=== PATIENT | female | born 1955 | race Caucasian/White ===

== ENCOUNTER 2017-06-23 10:47 | Inpatient (IN) | payer OTHER ==
[~2017-06-23] VITALS: Ht 162.6 cm; Wt 50.4 kg
[2017-06-23 11:30] LABS: BASOPHIL (%) 0.2 % (0-1); EOSINOPHIL (%) 0.2 % (0-5); HEMATOCRIT 49.6 % (36.0-46.0); IMMATURE GRANULOCYTE (%) 0.5 % (0.0-0.7); LYMPHOCYTE (%) 10.5 % (15-42); LYMPHOCYTE COUNT 1.3 K/uL (1.0-2.8); MCH 27.4 PG (29.0-34.0); MCHC 32.3 G/DL (30.0-36.0); MCV 85.1 FL (83-99); MONOCYTE (%) 7.8 % (3-12); MONOCYTE COUNT 0.9 K/uL (0-0.8); NEUTROPHIL (%) 80.8 % (45-76); NEUTROPHIL COUNT 9.7 K/uL (1.8-6.4); NRBC (%) 2.4 /100 WBC (0-0); PLATELET COUNT 211 K/uL (156-360); RBC DIS.WIDTH-CV 17.4 % (11.8-14.6); RBC DIS.WIDTH-SD 50.3 % (39-53); RED BLOOD COUNT 5.83 M/uL (3.80-5.20)
[2017-06-23 11:35] LABS: INTER. NORMALIZED RATIO 1.6
[2017-06-23 11:38] LABS: PTT 27.4 SEC (25-37)
[2017-06-23 11:41] LABS: CHLORIDE 91 mEq/L (99-109); POTASSIUM 5.9 mEq/L (3.7-5.4); SODIUM 134 mEq/L (136-147)
[2017-06-23 11:42] LABS: GLUCOSE 94 mg/dL (70-99)
[2017-06-23 11:46] LABS: CREATININE 0.9 mg/dL (0.6-1.3); GFR ESTIMATE (CALCULATED) > 59 mL/min/
[2017-06-23 11:47] LABS: UREA NITROGEN (BUN) 78 mg/dL (9-23)
[2017-06-23 11:50] LABS: TROP-I INTERPRETATION NEGATIVE; TROPONIN-I 0.04 ng/mL (0.0-0.30)
[2017-06-23] MEDS ORDERED: CALCIUM 500-VI1 EAC1 PO (14:22)
[2017-06-23 17:18] LABS: BASE EXCESS 3.7 mEq/L (-3 to +3); BICARBONATE 35.9 mEq/L (22-26); CARBOXY HGB 6.2 % (0-5); COMMENTS - BLOOD GASES A+C+; DEVICE NRBM; FI02 100 %; METHEMOGLOBIN 1.3 % (0-1.5); O2 FLOW 15 L/MIN; PCO2 94 mm Hg (35-45); PO2 170 mm Hg (80-100); SITE RR; TOTAL RESP RATE 22 resp/min
[2017-06-23 17:19] VITALS: BP 129/56
[2017-06-23 17:21] LABS: pH 7.19 (7.35-7.45)
[2017-06-23 18:40] LABS: TROP-I INTERPRETATION NEGATIVE; TROPONIN-I 0.04 ng/mL (0.0-0.30)
[2017-06-23 19:00] VITALS: BP 134/60
[2017-06-23 19:20] LABS: CHLORIDE 95 MEQ/L (99-109); CREATININE 0.7 MG/DL (0.6-1.3); GFR ESTIMATE (CALCULATED) > 59 mL/min/; GLUCOSE 107 mg/dL (70-99); POTASSIUM 4.8 MEQ/L (3.7-5.4); SODIUM 137 MEQ/L (136-147); UREA NITROGEN (BUN) 61 mg/dL (9-23)
[2017-06-23 20:00] VITALS: BP 143/62
[2017-06-23 20:28] LABS: BASE EXCESS 3.8 mEq/L (-3 to +3); BICARBONATE 35.2 mEq/L (22-26); COMMENTS - BLOOD GASES A+C+; DEVICE MASK VENT; FI02 80 %; METHEMOGLOBIN 1.6 % (0-1.5); MODE SPONT; PCO2 86 mm Hg (35-45); PO2 158 mm Hg (80-100); SITE LRAD; pH 7.22 (7.35-7.45)
[2017-06-23 20:29] LABS: PEEP 5 CM/H20; PRES. SUPPORT 13 CM/H2O; TOTAL RESP RATE 21 resp/min
[2017-06-23 21:00] VITALS: BP 128/59
[2017-06-23 22:00] VITALS: BP 128/59
[2017-06-23 23:00] VITALS: BP 116/55
[2017-06-24] VITALS (22 sets, daily range): BP systolic 98–138; BP diastolic 35–70
[2017-06-24 00:50] LABS: TROP-I INTERPRETATION NEGATIVE; TROPONIN-I 0.03 ng/mL (0.0-0.30)
[2017-06-24 07:06] LABS: BASOPHIL (%) 0.2 % (0-1); EOSINOPHIL (%) 0.2 % (0-5); HEMATOCRIT 47.2 % (36.0-46.0); HEMOGLOBIN 14.8 G/DL (11.9-15.5); IMMATURE GRANULOCYTE (%) 0.6 % (0.0-0.7); LYMPHOCYTE (%) 1.1 % (15-42); LYMPHOCYTE COUNT 0.1 K/uL (1.0-2.8); MCH 27.2 PG (29.0-34.0); MCHC 31.4 G/DL (30.0-36.0); MCV 86.6 FL (83-99); MONOCYTE (%) 4.1 % (3-12); MONOCYTE COUNT 0.5 K/uL (0-0.8); NEUTROPHIL (%) 93.8 % (45-76); NEUTROPHIL COUNT 11.8 K/uL (1.8-6.4); NRBC (%) 1.5 /100 WBC (0-0); PLATELET COUNT 175 K/uL (156-360); RBC DIS.WIDTH-CV 17.2 % (11.8-14.6); RBC DIS.WIDTH-SD 51.9 % (39-53); RED BLOOD COUNT 5.45 M/uL (3.80-5.20); WHITE BLOOD COUNT 12.6 K/uL (4.1-10.2)
[2017-06-24 07:32] LABS: ALBUMIN 2.9 G/DL (3.2-4.8); ALKALINE PHOSPHATASE 58 IU/L (3-129); ALT (GPT) 102 IU/L (3-49); AST (GOT) 81 IU/L (2-34); CHLORIDE 95 MEQ/L (99-109); CREATININE 0.6 MG/DL (0.6-1.3); GFR ESTIMATE (CALCULATED) > 59 mL/min/; GLUCOSE 112 mg/dL (70-99); MAGNESIUM 1.8 mg/dl (1.3-2.7); PHOSPHORUS 3.5 mg/dL (2.5-4.9); POTASSIUM 4.4 MEQ/L (3.7-5.4); SODIUM 142 MEQ/L (136-147); TOTAL BILIRUBIN 1.4 MG/DL (0.0-1.0); TOTAL PROTEIN 5.9 G/DL (6.4-8.3); UREA NITROGEN (BUN) 49 mg/dL (9-23)
[2017-06-24 11:20] LABS: BASE EXCESS 15.4 mEq/L (-3 to +3); CARBOXY HGB 2.7 % (0-5)
[2017-06-24 11:21] LABS: COMMENTS - BLOOD GASES A+C+; DEVICE HFNC; O2 FLOW 9 L/MIN; PCO2 76 mm Hg (35-45); PO2 58 mm Hg (80-100); SITE RR; TOTAL RESP RATE 25 resp/min; pH 7.38 (7.35-7.45)
[2017-06-25] VITALS (10 sets, daily range): BP systolic 91–136; BP diastolic 53–72
[2017-06-25 05:50] LABS: BASOPHIL (%) 0.1 % (0-1); EOSINOPHIL (%) 0 % (0-5); HEMATOCRIT 47.7 % (36.0-46.0); HEMOGLOBIN 14.7 G/DL (11.9-15.5); IMMATURE GRANULOCYTE (%) 0.6 % (0.0-0.7); LYMPHOCYTE (%) 0.6 % (15-42); LYMPHOCYTE COUNT 0.1 K/uL (1.0-2.8); MCH 26.9 PG (29.0-34.0); MCHC 30.8 G/DL (30.0-36.0); MCV 87.2 FL (83-99); MONOCYTE (%) 4.3 % (3-12); MONOCYTE COUNT 0.5 K/uL (0-0.8); NEUTROPHIL (%) 94.4 % (45-76); NEUTROPHIL COUNT 11.8 K/uL (1.8-6.4); PLATELET COUNT 178 K/uL (156-360); RBC DIS.WIDTH-CV 17.2 % (11.8-14.6); RED BLOOD COUNT 5.47 M/uL (3.80-5.20); WHITE BLOOD COUNT 12.5 K/uL (4.1-10.2)
[2017-06-25 06:08] LABS: CHLORIDE 93 MEQ/L (99-109); CREATININE 0.6 MG/DL (0.6-1.3); GFR ESTIMATE (CALCULATED) > 59 mL/min/; GLUCOSE 73 mg/dL (70-99); MAGNESIUM 1.8 mg/dl (1.3-2.7); PHOSPHORUS 2.5 mg/dL (2.5-4.9); POTASSIUM 4.2 MEQ/L (3.7-5.4); SODIUM 139 MEQ/L (136-147); UREA NITROGEN (BUN) 36 mg/dL (9-23)
[2017-06-25 13:31] LABS: INTER. NORMALIZED RATIO 1.3
[2017-06-25 13:34] LABS: PTT 51.2 SEC (25-37)
[2017-06-26] VITALS (15 sets, daily range): BP systolic 97–126; BP diastolic 53–68
[2017-06-26 05:37] LABS: INTER. NORMALIZED RATIO 1.2
[2017-06-26 06:13] LABS: PTT 68.6 SEC (25-37)
[2017-06-26 08:30] LABS: BASOPHIL (%) 0.1 % (0-1); EOSINOPHIL (%) 0 % (0-5); HEMATOCRIT 48.7 % (36.0-46.0); HEMOGLOBIN 14.9 G/DL (11.9-15.5); IMMATURE GRANULOCYTE (%) 0.5 % (0.0-0.7); LYMPHOCYTE (%) 0.5 % (15-42); LYMPHOCYTE COUNT 0.1 K/uL (1.0-2.8); MCH 26.8 PG (29.0-34.0); MCHC 30.6 G/DL (30.0-36.0); MCV 87.4 FL (83-99); MONOCYTE (%) 3.2 % (3-12); MONOCYTE COUNT 0.4 K/uL (0-0.8); NEUTROPHIL (%) 95.7 % (45-76); NEUTROPHIL COUNT 12.3 K/uL (1.8-6.4); NRBC (%) 0.8 /100 WBC (0-0); PLATELET COUNT 159 K/uL (156-360); RBC DIS.WIDTH-CV 17.5 % (11.8-14.6); RBC DIS.WIDTH-SD 52.6 % (39-53); RED BLOOD COUNT 5.57 M/uL (3.80-5.20); WHITE BLOOD COUNT 12.8 K/uL (4.1-10.2)
[2017-06-26 09:06] LABS: CHLORIDE 94 MEQ/L (99-109); CREATININE 0.5 MG/DL (0.6-1.3); GFR ESTIMATE (CALCULATED) > 59 mL/min/; SODIUM 143 MEQ/L (136-147); UREA NITROGEN (BUN) 27 mg/dL (9-23)
[2017-06-26 09:07] LABS: CARBON DIOXIDE (BICARBONATE) > 40.0 MEQ/L (20-31); GLUCOSE 116 mg/dL (70-99)
[2017-06-26 11:36] LABS: INTER. NORMALIZED RATIO 1.2
[2017-06-26 11:39] LABS: PTT 83.4 SEC (25-37)
[2017-06-26 19:21] LABS: ALBUMIN 2.8 G/DL (3.2-4.8); ALKALINE PHOSPHATASE 49 IU/L (3-129); ALT (GPT) 59 IU/L (3-49); CHLORIDE 93 MEQ/L (99-109); CREATININE 0.4 MG/DL (0.6-1.3); GFR ESTIMATE (CALCULATED) > 59 mL/min/; SODIUM 140 MEQ/L (136-147); TOTAL PROTEIN 5.8 G/DL (6.4-8.3); UREA NITROGEN (BUN) 22 mg/dL (9-23)
[2017-06-26 19:22] LABS: AST (GOT) 32 IU/L (2-34); GLUCOSE 177 mg/dL (70-99); POTASSIUM 3.1 MEQ/L (3.7-5.4); TOTAL BILIRUBIN 0.8 MG/DL (0.0-1.0)
[2017-06-27] VITALS (10 sets, daily range): BP systolic 102–136; BP diastolic 58–74
[2017-06-27 06:24] LABS: BASOPHIL (%) 0.1 % (0-1); EOSINOPHIL (%) 0 % (0-5); HEMATOCRIT 47.6 % (36.0-46.0); HEMOGLOBIN 14.7 G/DL (11.9-15.5); IMMATURE GRANULOCYTE (%) 0.7 % (0.0-0.7); LYMPHOCYTE (%) 1.1 % (15-42); LYMPHOCYTE COUNT 0.2 K/uL (1.0-2.8); MCH 26.5 PG (29.0-34.0); MCHC 30.9 G/DL (30.0-36.0); MCV 85.9 FL (83-99); MONOCYTE (%) 3.2 % (3-12); MONOCYTE COUNT 0.4 K/uL (0-0.8); NEUTROPHIL (%) 94.9 % (45-76); NRBC (%) 0.4 /100 WBC (0-0); PLATELET COUNT 146 K/uL (156-360); RBC DIS.WIDTH-CV 16.5 % (11.8-14.6); RBC DIS.WIDTH-SD 50.7 % (39-53); RED BLOOD COUNT 5.54 M/uL (3.80-5.20); WHITE BLOOD COUNT 13.7 K/uL (4.1-10.2)
[2017-06-27 06:56] LABS: CHLORIDE 96 MEQ/L (99-109); CREATININE 0.4 MG/DL (0.6-1.3); GFR ESTIMATE (CALCULATED) > 59 mL/min/; GLUCOSE 157 mg/dL (70-99); POTASSIUM 3.5 MEQ/L (3.7-5.4); SODIUM 142 MEQ/L (136-147); UREA NITROGEN (BUN) 17 mg/dL (9-23)
[2017-06-27 07:47] LABS: INTER. NORMALIZED RATIO 1.3
[2017-06-27 07:49] LABS: PTT 87.3 SEC (25-37)
[2017-06-27 09:57] LABS: HEMOGLOBIN A1c (GLYCOHEMOGLOB) 6.7 % (Below 5.7)
[2017-06-27 12:41] LABS: INTER. NORMALIZED RATIO 1.5
[2017-06-28] VITALS: BP 136/72
[2017-06-28 04:00] VITALS: BP 141/79
[2017-06-28 06:17] LABS: BASOPHIL (%) 0.1 % (0-1); EOSINOPHIL (%) 0 % (0-5); HEMATOCRIT 47.3 % (36.0-46.0); HEMOGLOBIN 14.7 G/DL (11.9-15.5); IMMATURE GRANULOCYTE (%) 0.5 % (0.0-0.7); LYMPHOCYTE (%) 2.3 % (15-42); LYMPHOCYTE COUNT 0.3 K/uL (1.0-2.8); MCH 26.3 PG (29.0-34.0); MCHC 31.1 G/DL (30.0-36.0); MCV 84.8 FL (83-99); MONOCYTE (%) 4.9 % (3-12); MONOCYTE COUNT 0.6 K/uL (0-0.8); NEUTROPHIL (%) 92.2 % (45-76); NEUTROPHIL COUNT 11.8 K/uL (1.8-6.4); PLATELET COUNT 147 K/uL (156-360); RBC DIS.WIDTH-CV 16.7 % (11.8-14.6); RBC DIS.WIDTH-SD 50.3 % (39-53); RED BLOOD COUNT 5.58 M/uL (3.80-5.20); WHITE BLOOD COUNT 12.7 K/uL (4.1-10.2)
[2017-06-28 06:25] LABS: INTER. NORMALIZED RATIO 1.4
[2017-06-28 06:28] LABS: PTT 80.7 SEC (25-37)
[2017-06-28 06:40] LABS: CHLORIDE 100 MEQ/L (99-109); CREATININE 0.4 MG/DL (0.6-1.3); GFR ESTIMATE (CALCULATED) > 59 mL/min/; GLUCOSE 146 mg/dL (70-99); POTASSIUM 4.1 MEQ/L (3.7-5.4); SODIUM 140 MEQ/L (136-147); UREA NITROGEN (BUN) 18 mg/dL (9-23)
[2017-06-28 08:00] VITALS: BP 102/63
[2017-06-28 12:00] VITALS: BP 136/72
[2017-06-28 13:01] LABS: INTER. NORMALIZED RATIO 1.6
[2017-06-28 13:03] LABS: PTT 71.9 SEC (25-37)
[2017-06-28 13:36] VITALS: BP 127/65
[2017-06-28 19:35] VITALS: BP 137/66
[2017-06-29 00:04] VITALS: BP 129/74
[2017-06-29 03:16] VITALS: BP 128/70
[2017-06-29 06:10] LABS: BASOPHIL (%) 0.1 % (0-1); EOSINOPHIL (%) 0.5 % (0-5); EOSINOPHIL COUNT 0.1 K/uL (0-0.3); HEMATOCRIT 46.2 % (36.0-46.0); HEMOGLOBIN 14.8 G/DL (11.9-15.5); IMMATURE GRANULOCYTE (%) 0.5 % (0.0-0.7); LYMPHOCYTE (%) 12.4 % (15-42); LYMPHOCYTE COUNT 1.2 K/uL (1.0-2.8); MCH 26.8 PG (29.0-34.0); MCV 83.7 FL (83-99); MONOCYTE (%) 6.9 % (3-12); MONOCYTE COUNT 0.7 K/uL (0-0.8); NEUTROPHIL (%) 79.6 % (45-76); PLATELET COUNT 149 K/uL (156-360); RBC DIS.WIDTH-CV 17.3 % (11.8-14.6); RBC DIS.WIDTH-SD 50.4 % (39-53); RED BLOOD COUNT 5.52 M/uL (3.80-5.20)
[2017-06-29 06:23] LABS: INTER. NORMALIZED RATIO 1.6
[2017-06-29 06:26] LABS: PTT 79.2 SEC (25-37)
[2017-06-29 06:34] LABS: CHLORIDE 102 MEQ/L (99-109); CREATININE 0.3 MG/DL (0.6-1.3); GFR ESTIMATE (CALCULATED) > 59 mL/min/; POTASSIUM 3.9 MEQ/L (3.7-5.4); SODIUM 139 MEQ/L (136-147); UREA NITROGEN (BUN) 16 mg/dL (9-23)
[2017-06-29 06:35] LABS: GLUCOSE 81 mg/dL (70-99)
[2017-06-29 08:05] VITALS: BP 144/72
[2017-06-29 11:58] VITALS: BP 131/62
[2017-06-29 19:30] VITALS: BP 133/70
[2017-06-29 23:57] VITALS: BP 129/65
[2017-06-30 03:27] VITALS: BP 147/80
[2017-06-30 06:35] LABS: BASOPHIL (%) 0.1 % (0-1); EOSINOPHIL (%) 0.5 % (0-5); EOSINOPHIL COUNT 0.1 K/uL (0-0.3); HEMATOCRIT 46.8 % (36.0-46.0); HEMOGLOBIN 14.7 G/DL (11.9-15.5); IMMATURE GRANULOCYTE (%) 0.5 % (0.0-0.7); LYMPHOCYTE (%) 10.9 % (15-42); LYMPHOCYTE COUNT 1.1 K/uL (1.0-2.8); MCH 25.8 PG (29.0-34.0); MCHC 31.4 G/DL (30.0-36.0); MCV 82.1 FL (83-99); MONOCYTE (%) 8.2 % (3-12); MONOCYTE COUNT 0.8 K/uL (0-0.8); NEUTROPHIL (%) 79.8 % (45-76); NEUTROPHIL COUNT 7.7 K/uL (1.8-6.4); PLATELET COUNT 149 K/uL (156-360); RBC DIS.WIDTH-CV 16.5 % (11.8-14.6); RBC DIS.WIDTH-SD 48.1 % (39-53); WHITE BLOOD COUNT 9.6 K/uL (4.1-10.2)
[2017-06-30 06:50] LABS: INTER. NORMALIZED RATIO 2.6
[2017-06-30 06:52] LABS: PTT 65.1 SEC (25-37)
[2017-06-30 06:59] LABS: CHLORIDE 101 MEQ/L (99-109); CREATININE 0.4 MG/DL (0.6-1.3); GFR ESTIMATE (CALCULATED) > 59 mL/min/; GLUCOSE 79 mg/dL (70-99); POTASSIUM 3.8 MEQ/L (3.7-5.4); SODIUM 140 MEQ/L (136-147); UREA NITROGEN (BUN) 14 mg/dL (9-23)
[2017-06-30 07:20] VITALS: BP 142/75
[2017-06-30 11:35] VITALS: BP 103/60
[2017-06-30 15:03] VITALS: BP 112/58
[2017-06-30 19:40] VITALS: BP 115/65
[2017-07-01] VITALS (7 sets, daily range): BP systolic 110–132; BP diastolic 58–67
[2017-07-01 07:07] LABS: INTER. NORMALIZED RATIO 2.3
[2017-07-01 07:10] LABS: PTT 74.3 SEC (25-37)
[2017-07-01 07:19] LABS: BASOPHIL (%) 0.1 % (0-1); EOSINOPHIL (%) 0.4 % (0-5); HEMATOCRIT 44.5 % (36.0-46.0); HEMOGLOBIN 14.4 G/DL (11.9-15.5); IMMATURE GRANULOCYTE (%) 0.6 % (0.0-0.7); LYMPHOCYTE (%) 11.5 % (15-42); MCH 26.4 PG (29.0-34.0); MCHC 32.4 G/DL (30.0-36.0); MCV 81.7 FL (83-99); MONOCYTE COUNT 0.8 K/uL (0-0.8); NEUTROPHIL (%) 78.4 % (45-76); PLATELET COUNT 140 K/uL (156-360); RBC DIS.WIDTH-CV 16.8 % (11.8-14.6); RBC DIS.WIDTH-SD 48.6 % (39-53); RED BLOOD COUNT 5.45 M/uL (3.80-5.20)
[2017-07-01 07:35] LABS: CHLORIDE 99 MEQ/L (99-109); CREATININE 0.3 MG/DL (0.6-1.3); GFR ESTIMATE (CALCULATED) > 59 mL/min/; GLUCOSE 86 mg/dL (70-99); POTASSIUM 3.8 MEQ/L (3.7-5.4); SODIUM 137 MEQ/L (136-147); UREA NITROGEN (BUN) 14 mg/dL (9-23)
[2017-07-02 00:02] VITALS: BP 115/66
[2017-07-02 04:00] VITALS: BP 118/59
[2017-07-02 05:08] LABS: BASOPHIL (%) 0.1 % (0-1); EOSINOPHIL (%) 0.6 % (0-5); EOSINOPHIL COUNT 0.1 K/uL (0-0.3); HEMATOCRIT 42.5 % (36.0-46.0); HEMOGLOBIN 13.6 G/DL (11.9-15.5); IMMATURE GRANULOCYTE (%) 0.3 % (0.0-0.7); LYMPHOCYTE (%) 11.6 % (15-42); LYMPHOCYTE COUNT 1.1 K/uL (1.0-2.8); MCH 26.4 PG (29.0-34.0); MCV 82.4 FL (83-99); MONOCYTE (%) 9.7 % (3-12); MONOCYTE COUNT 0.9 K/uL (0-0.8); NEUTROPHIL (%) 77.7 % (45-76); NEUTROPHIL COUNT 7.3 K/uL (1.8-6.4); PLATELET COUNT 132 K/uL (156-360); RBC DIS.WIDTH-CV 16.8 % (11.8-14.6); RBC DIS.WIDTH-SD 49.1 % (39-53); RED BLOOD COUNT 5.16 M/uL (3.80-5.20); WHITE BLOOD COUNT 9.4 K/uL (4.1-10.2)
[2017-07-02 05:23] LABS: INTER. NORMALIZED RATIO 1.6
[2017-07-02 05:40] LABS: CHLORIDE 101 MEQ/L (99-109); CREATININE 0.3 MG/DL (0.6-1.3); GFR ESTIMATE (CALCULATED) > 59 mL/min/; POTASSIUM 3.2 MEQ/L (3.7-5.4); SODIUM 138 MEQ/L (136-147); UREA NITROGEN (BUN) 12 mg/dL (9-23)
[2017-07-02 05:46] LABS: GLUCOSE 118 mg/dL (70-99)
[2017-07-02 07:28] VITALS: BP 122/63
[2017-07-02 11:50] VITALS: BP 122/59
[2017-07-02 12:50] LABS: INTER. NORMALIZED RATIO 1.8
[2017-07-02 16:37] LABS: ACTIVATED PROTEIN C RESIST+ 4.7 ratio (>=2.1); DRVVT Mixing Study Interp Not Indicated (()); FACTOR VIII ACTIVITY+ 224 % (50-180); Thrombosis Consult Level Limited (()); dRVVT Screen 36 sec (<=45)
[2017-07-02 20:00] VITALS: BP 136/63
[2017-07-03] VITALS (7 sets, daily range): BP systolic 112–139; BP diastolic 58–75
[2017-07-03 05:31] LABS: INTER. NORMALIZED RATIO 1.5
[2017-07-03 05:51] LABS: CHLORIDE 101 MEQ/L (99-109); CREATININE 0.3 MG/DL (0.6-1.3); GFR ESTIMATE (CALCULATED) > 59 mL/min/; GLUCOSE 94 mg/dL (70-99); POTASSIUM 3.7 MEQ/L (3.7-5.4); SODIUM 140 MEQ/L (136-147); UREA NITROGEN (BUN) 13 mg/dL (9-23)
[2017-07-03 11:21] LABS: ANTITHROMBIN III ACTIVITY+ 85 % activi (80-120)
[2017-07-03 13:10] LABS: INTER. NORMALIZED RATIO 1.6
[2017-07-03 13:36] LABS: TYPE OF FLUID PLEURAL
[2017-07-03 13:51] LABS: APPEARANCE HAZY-YELLOW; BODY FLUID RBC'S 1000 /MM^3 (0-100); BODY FLUID WBC'S 1740 /MM^3 (0-500)
[2017-07-03 14:14] LABS: BODY FLUID GLUCOSE 119 MG/DL; BODY FLUID LDH 113 IU/L; BODY FLUID PROTEIN < 3 G/DL
[2017-07-03 14:22] LABS: BODY FLUID EOSINOPHILS 0 % (0-25); MONONUCLEAR WBC'S 5 %; POLYNUCLEAR WBC'S 95 % (0-25)
[2017-07-04 03:11] VITALS: BP 122/65
[2017-07-04 05:30] LABS: HEMATOCRIT 40.1 % (36.0-46.0); HEMOGLOBIN 12.8 G/DL (11.9-15.5); MCH 26.2 PG (29.0-34.0); MCHC 31.9 G/DL (30.0-36.0); MCV 82.2 FL (83-99); PLATELET COUNT 160 K/uL (156-360); RBC DIS.WIDTH-CV 17.3 % (11.8-14.6); RBC DIS.WIDTH-SD 50.6 % (39-53); RED BLOOD COUNT 4.88 M/uL (3.80-5.20); WHITE BLOOD COUNT 8.4 K/uL (4.1-10.2)
[2017-07-04 05:35] LABS: INTER. NORMALIZED RATIO 1.7
[2017-07-04 07:05] VITALS: BP 124/64
[2017-07-04 12:00] VITALS: BP 122/62
[2017-07-04 13:00] LABS: INTER. NORMALIZED RATIO 1.9
[2017-07-04 15:30] VITALS: BP 122/67
[2017-07-04 20:41] VITALS: BP 128/68
[2017-07-04 23:54] VITALS: BP 152/82
[2017-07-05 03:13] VITALS: BP 143/73
[2017-07-05 06:59] VITALS: BP 119/65
[2017-07-05 11:06] VITALS: BP 125/58
[2017-07-05 12:24] LABS: INTER. NORMALIZED RATIO 2.1
[2017-07-05 13:22] LABS: CHLORIDE 97 MEQ/L (99-109); CREATININE 0.3 MG/DL (0.6-1.3); GFR ESTIMATE (CALCULATED) > 59 mL/min/; GLUCOSE 130 mg/dL (70-99); SODIUM 137 MEQ/L (136-147); UREA NITROGEN (BUN) 12 mg/dL (9-23)
[2017-07-05 15:15] VITALS: BP 116/58
[2017-07-05 20:34] VITALS: BP 108/59
[2017-07-06] VITALS (7 sets, daily range): BP systolic 108–142; BP diastolic 56–84
[2017-07-06 05:24] LABS: INTER. NORMALIZED RATIO 2.2
[2017-07-06 12:30] LABS: INTER. NORMALIZED RATIO 2.3
[2017-07-06 23:28] LABS: BODY FLUID PH 8.2 (())
[2017-07-07 04:52] VITALS: BP 125/63
[2017-07-07 05:19] LABS: HEMATOCRIT 42.2 % (36.0-46.0); HEMOGLOBIN 13.2 G/DL (11.9-15.5); MCH 26.1 PG (29.0-34.0); MCHC 31.3 G/DL (30.0-36.0); MCV 83.6 FL (83-99); RBC DIS.WIDTH-CV 17.9 % (11.8-14.6); RBC DIS.WIDTH-SD 52.9 % (39-53); RED BLOOD COUNT 5.05 M/uL (3.80-5.20); WHITE BLOOD COUNT 6.1 K/uL (4.1-10.2)
[2017-07-07 05:20] LABS: PLATELET COUNT 214 K/uL (156-360)
[2017-07-07 05:42] LABS: INTER. NORMALIZED RATIO 2.1
[2017-07-07 07:04] VITALS: BP 128/73
[2017-07-07 11:46] VITALS: BP 113/61
[2017-07-07 12:28] LABS: INTER. NORMALIZED RATIO 2.2
[2017-07-07 15:28] VITALS: BP 125/70
[2017-07-07 21:00] VITALS: BP 111/62
[2017-07-08 00:26] VITALS: BP 118/59
[2017-07-08 06:17] LABS: INTER. NORMALIZED RATIO 1.6
[2017-07-08 06:31] VITALS: BP 131/65
[2017-07-08 07:29] VITALS: BP 137/67
[2017-07-08 12:32] LABS: INTER. NORMALIZED RATIO 1.8
[2017-07-08 14:58] VITALS: BP 121/62
[2017-07-08 20:48] VITALS: BP 104/56
[2017-07-09 00:16] VITALS: BP 102/62
[2017-07-09 05:18] LABS: HEMATOCRIT 43.4 % (36.0-46.0); HEMOGLOBIN 13.6 G/DL (11.9-15.5); MCH 25.9 PG (29.0-34.0); MCHC 31.3 G/DL (30.0-36.0); MCV 82.7 FL (83-99); RBC DIS.WIDTH-CV 18.3 % (11.8-14.6); RED BLOOD COUNT 5.25 M/uL (3.80-5.20); WHITE BLOOD COUNT 6.5 K/uL (4.1-10.2)
[2017-07-09 05:21] LABS: INTER. NORMALIZED RATIO 1.6
[2017-07-09 05:22] LABS: PLATELET COUNT 343 K/uL (156-360)
[2017-07-09 08:00] VITALS: BP 133/71
[2017-07-09 08:00] LABS: PTT 28.3 SEC (25-37)
[2017-07-09] MEDS ORDERED: AZITHROMYCIN500 M1 PO (11:07)
[2017-07-09] MEDS ORDERED: NICOTINE PATCH1 EAC2 TD (11:08)
[2017-07-09] MEDS ORDERED: PREDNISONE10 MG PO (11:12)
[2017-07-09] MEDS ORDERED: PREDNISONE5 MG PO (11:14)
[2017-07-09] MEDS ORDERED: LOVENOX60 MG/0.6 SC (11:16)
[2017-07-09] MEDS ORDERED: COUMADIN5 MG PO (11:20)
[2017-07-09] MEDS ORDERED: ADVAIR HFA120 INHALA IH (11:28)
[2017-07-09] MEDS ORDERED: SPIRIVA RESPIMAT4 GM IH (11:28)
[2017-07-09] MEDS ORDERED: PROAIR HFA8.5 GM IH (11:30)
[2017-07-09] MEDS ORDERED: FAMOTIDINE20 MG PO (11:33)
== END 2017-07-09 15:29 | disposition home health service (06) | DRG 175 ==
LOC: EME 10:47 → 4WEST 14:31 → EDOF 14:31 → ENRESERV 14:32 → 4EAST 16:36 → ENRESERV 17:47 → 4WEST 18:25 → ENRESERV 06-28 12:10 → 4EAST 06-28 13:15
PROVIDERS: Emergency Medicine; Hospitalist; Internal Medicine; Internal Medicine Critical Care Medicine; Internal Medicine Hematology & Oncology; Specialist
PROC: 0W993ZZ Drainage of Right Pleural Cavity, Percutaneous Approach (ICD-10-PCS; principal; 2017-07-03)
DX: I26.99 Other pulmonary embolism without acute cor pulmonale (principal); J44.1 Chronic obstructive pulmonary disease with (acute) exacerbation; J18.9 Pneumonia, unspecified organism; J44.0 Chronic obstructive pulmonary disease with (acute) lower respiratory infection; J96.01 Acute respiratory failure with hypoxia; J96.02 Acute respiratory failure with hypercapnia; I50.32 Chronic diastolic (congestive) heart failure; I27.20 Pulmonary hypertension, unspecified; D69.59 Other secondary thrombocytopenia; D75.1 Secondary polycythemia; E87.3 Alkalosis; T50.2X5A Adverse effect of carbonic-anhydrase inhibitors, benzothiadiazides and other diuretics, initial encounter; E83.51 Hypocalcemia; E87.5 Hyperkalemia; E86.0 Dehydration; E87.6 Hypokalemia; J98.11 Atelectasis; R59.0 Localized enlarged lymph nodes; I82.813 Embolism and thrombosis of superficial veins of lower extremities, bilateral; I82.4Z3 Acute embolism and thrombosis of unspecified deep veins of distal lower extremity, bilateral; I82.411 Acute embolism and thrombosis of right femoral vein; I82.441 Acute embolism and thrombosis of right tibial vein; I82.431 Acute embolism and thrombosis of right popliteal vein; I82.532 Chronic embolism and thrombosis of left popliteal vein; R91.1 Solitary pulmonary nodule; R79.89 Other specified abnormal findings of blood chemistry; E11.9 Type 2 diabetes mellitus without complications; F17.210 Nicotine dependence, cigarettes, uncomplicated; Z71.6 Tobacco abuse counseling
CPT/HCPCS: 36600; 71045; 71046; 71250; 71275; 76942; 80048; 80048 91; 80053; 80202; 81240 90; 82803; 82945; 82948; 83036; 83090 90; 83615; 83615 91; 83735; 83880; 83986 90; 84100; 84145 90; 84157; 84484; 85025; 85027; 85240 90; 85300 90; 85307 90; 85610; 85613 90; 85730; 86146 90; 86147 90; 87070; 87075; 87205; 87449; 87502; 87641; 88108; 88305; 89051; 93005; 93306; 93970; 94002; 94640; 94640 76; 94667; 94668; 94760; 94799; 99202; 99281; 99284; J0610; J0692; J1815; J1940; J2060; J2920; J2930; J3370; J7030; J7050; J7512

== ENCOUNTER → 2017-09-29 | Outpatient (CLI) | payer OTHER ==
[~2017-09-29] MED LIST: ADVAIR HFA120 INHALA IH; AZITHROMYCIN500 M1 PO; CALCIUM 500-VI1 EAC1 PO; COUMADIN5 MG PO; FAMOTIDINE20 MG PO; LOVENOX60 MG/0.6 SC; NICOTINE PATCH1 EAC2 TD; PREDNISONE10 MG PO; PREDNISONE5 MG PO; PROAIR HFA8.5 GM IH; SPIRIVA RESPIMAT4 GM IH
== END | disposition home or self-care (01) ==
LOC: RAD 08:30
DX: R91.1 Solitary pulmonary nodule (principal); R91.8 Other nonspecific abnormal finding of lung field
CPT/HCPCS: 71250